=== PATIENT | female | born 1990 | race Caucasian/White ===

== ENCOUNTER 2023-04-20 11:07 | Emergency (ER) | payer OTHER, SELFPAY ==
[2023-04-20] VITALS (32 sets, daily range): BP systolic 107–135; BP diastolic 62–101; PULSE 70–101; RESP 13–29; TEMP 36.7; O2SAT 93–100
--- NOTE | 2023-04-20 13:04 | ED.FEMALEGU ---
HPI - Female Genitourinary General Chief complaint: Vaginal Bleeding Stated complaint: 9 wk preg, bleeding x2 days Time Seen by Provider: 04/20/23 12:04 History of Present Illness HPI Narrative: Patient is a 32-year-old female presenting with vaginal bleeding. Patient states that her last menstrual period was approximately 3 months ago. She had an ultrasound on March 25 that showed an embryo at approximately 6 weeks gestation with positive cardiac activity. States that she began having vaginal bleeding approximately 4 to 5 days ago. She was seen at an outside hospital where an ultrasound was obtained which showed an embryo measuring approximately 6 weeks with no cardiac activity as well as a small subchorionic hemorrhage. She was advised to go on bedrest until her OB appointment on Saturday. States that she woke up this morning and started having vaginal bleeding that was like a period. She denies any pain. Denies any excessive bleeding or passage of clots. Denies further complaints. Related Data Allergies Allergy/AdvReac Type Severity Reaction Status Date / Time latex Allergy Rash Verified 04/20/23 11:09 Sulfa (Sulfonamide Allergy Unknown Verified 04/20/23 11:09 Antibiotics) Review of Systems Review of Systems: All systems reviewed & are unremarkable except as noted in HPI and below Exam Narrative: GENERAL: Well-appearing and in no acute distress. Pleasant and cooperative HEAD: Normocephalic, atraumatic. EYES: PERRLA and EOMI. ENT: Mucous membranes moist. NECK: Supple. CHEST: No respiratory distress. HEART: Regular rate and rhythm ABDOMEN: Soft, nontender, nondistended EXTREMITIES: Normal range of motion. No edema. SKIN: Warm, dry, no rash. NEURO: No focal deficits. Alert and oriented x3. PSYCH: Normal mood and affect. Course Vital Signs Vital signs: Vital Signs Temperature 98.1 F 04/20/23 11:28 Pulse Rate 91 04/20/23 11:28 Respiratory Rate 15 04/20/23 11:28 Pulse Oximetry 99 04/20/23 11:28 Oxygen Delivery Room Air 04/20/23 11:28 Temperature 98.1 F 04/20/23 11:28 Pulse Rate 74 04/20/23 15:01 Respiratory Rate 22 H 04/20/23 15:01 Blood Pressure 126/75 04/20/23 15:01 Pulse Oximetry 95 04/20/23 15:01 Oxygen Delivery Room Air 04/20/23 11:28 MDM - Female Genitourinary MDM Narrative Medical decision making narrative: Patient is a 32-year-old female presenting with vaginal bleeding. Vitals are stable. Exam remarkable for the above. I reviewed the ultrasound results from 2 days ago from the outside hospital. Patient was able to pull it up on her phone. It states that the embryo is measuring around 6 weeks gestational age with no cardiac activity with small subchorionic hemorrhage. Patient had her initial ultrasound approximately 3-1/2 weeks ago that showed the embryo at 6 weeks with positive cardiac activity. Given this recent ultrasound, I suspect that the patient is actively miscarrying. Do not feel that a repeat ultrasound is necessary at this time as we know it is intrauterine. She denies any pain. She denies any excessive bleeding. Will obtain a beta-hCG. Patient has an appointment with her OB in 2 days. Beta-hCG today is 5200, downtrending from 5602 days ago. CBC with normal hemoglobin. Discussed the blood work with the patient and discussed that she is likely having a miscarriage. Advised that she keep her OB appointment in 2 days. Discussed appropriate supportive care. Patient voiced understanding and is agreeable with plan. Discharged in stable condition. Differential Diagnosis Differential diagnosis: Likely other (Bleeding in early , miscarriage) Medical Records Attestation: I reviewed the patient's medical records. Medical records narrative: Reviewed records from outside hospital on the patient's portal on her cell phone. Lab Data Attestation: I reviewed the patient's lab results. 04/20/23 13:41 Labs: Lab Results
[2023-04-20] MEDS: KETOROLAC 30 MG/ML VIAL (*BKC) IM (13:14)
[2023-04-20 13:55] LABS: Basophils Absolute Auto 0.1 K/mm3 (0.0-0.1); Basophils Percent Auto 0.4 % (0.2-1.2); Eosinophils Absolute Auto 0.3 K/mm3 (0-0.3); Eosinophils Percent Auto 2.3 % (0-4.4); Hematocrit 42.1 % (37.0-47.0); Hemoglobin 13.7 g/dL (12.0-15.0); Immature Granulocyte Absolute 0.07 K/mm3 (0.00-0.031); Immature Granulocyte Percent A 0.5 % (0-0.5); Lymphocytes Absolute Auto 3.68 K/mm3 (0.9-3.2); Lymphocytes Percent Auto 28.2 % (18.3-44.2); Mean Corpuscular HGB Conc 32.5 g/dl (32-36); Mean Corpuscular Hemoglobin 28.4 pg (26-34); Mean Corpuscular Volume 87.2 fl (80-100); Mean Platelet Volume 9.8 fl (7.4-10.4); Monocytes Absolute Auto 0.6 K/mm3 (0.1-0.6); Monocytes Percent Auto 4.8 % (2.6-8.5); Neutrophils Absolute Auto 8.3 K/mm3 (1.3-6.7); Neutrophils Percent Auto 63.8 % (45.5-73.1); Platelet Count Result 313 k/mm3 (150-375); Red Blood Count 4.83 M/mm3 (4.2-5.4); Red Cell Distribution Width 13.7 % (11.5-14.5)
== END 2023-04-20 15:11 | disposition home or self-care (01) ==
PROVIDERS: Emergency Provider Emergency Medicine; PCP Physician Assistant
DX: O03.9 Complete or unspecified spontaneous abortion without complication (principal)
CPT/HCPCS: 36415; 84702; 85025; 96372; 99284; J1885